=== PATIENT | female | born 1940 | race Caucasian/White ===

== ENCOUNTER 2018-11-22 20:39 | Inpatient (IN) | payer MEDICARE, BC ==
[2018-11-22] MEDS ORDERED: ONDANSETRON 4 MG TAB.RAPDIS PO ONE (22:34)
[2018-11-22] MEDS ORDERED: DICYCLOMINE HCL 20 MG TABLET PO ONE (22:34)
[2018-11-22] MEDS ORDERED: NORMAL SALINE 1000 ML 1,000 ML IV ONE (22:35)
--- NOTE | 2018-11-22 22:37 | ER Document Report ---
ED Medical Screen (RME) - General Chief Complaint: Abdominal Cramping Stated Complaint: ABDOMINAL PAIN Time Seen by Provider: 11/22/18 22:26 Notes: Patient is a 78-year-old female who presents the emergency department with a chief complaint of abdominal pain. Her pain is mid abdomen. Patient has had pain for the past week. She states that it is a cramping pain. She states that 5 days ago she felt constipated and took some medication to have her have a bowel movement and she has not had a bowel movement since then. She also states that she has not been eating or drinking and has had a poor appetite. The pain is in her mid abdomen and wraps around her right back. Exam: Soft mildly tender abdomen. I have greeted and performed a rapid initial assessment of this patient. A comprehensive ED assessment and evaluation of the patient, analysis of test results and completion of medical decision making process will be conducted by an additional ED providers. - Related Data Allergies/Adverse Reactions: codeine Allergy (Verified 11/22/18 22:32) shellfish derived Allergy (Verified 11/22/18 22:32) Past Medical History - Social History Frequency of alcohol use: Rare Drug Abuse: None Physical Exam - Vital signs Vitals: Temp Pulse Resp BP Pulse Ox 98.0 F 92 16 146/63 H 97 11/22/18 20:56 11/22/18 20:56 11/22/18 20:56 11/22/18 20:56 11/22/18 20:56 Course - Vital Signs Vital signs: Temp Pulse Resp BP Pulse Ox 98.0 F 92 16 146/63 H 97 11/22/18 20:56 11/22/18 20:56 11/22/18 20:56 11/22/18 20:56 11/22/18 20:56
[2018-11-22 23:50] LABS: APPEARANCE,URINE CLEAR; BILIRUBIN,URINE MODERATE (NEGATIVE); GLUCOSE, URINE NEGATIVE (NEGATIVE); KETONES,URINE TRACE mg/dL (NEGATIVE); LEUKOCYTE ESTERASE,URINE NEGATIVE (NEGATIVE); NITRITE,URINE NEGATIVE (NEGATIVE); PROTEIN,URINE 30 mg/dL (NEGATIVE); URINE SPECIFIC GRAVITY 1.017
[2018-11-22 23:51] LABS: COLOR,URINE DARK YELLOW
--- NOTE | 2018-11-22 23:51 | ER Document Report ---
ED General - General Chief Complaint: Abdominal Cramping Stated Complaint: ABDOMINAL PAIN Time Seen by Provider: 11/22/18 22:26 - HPI Notes: Patient presents with 2 weeks of intermittent mid abdominal pain that wraps around to the right side of her back. She had a bowel movement after taking laxatives this past Sunday is not had a bowel movement since then. She denies any chest pain shortness of breath fevers or chills. Denies any dysuria. Is any black-red stool from her last bowel movement. She has been having nausea a nd vomiting up most of what she eats over the past 5 days. - Related Data Allergies/Adverse Reactions: codeine Allergy (Verified 11/22/18 22:32) shellfish derived Allergy (Verified 11/22/18 22:32) Past Medical History - Social History Smoking Status: Former Smoker Frequency of alcohol use: Rare Drug Abuse: None Family History: Reviewed & Not Pertinent Patient has suicidal ideation: No Patient has homicidal ideation: No Review of Systems - Review of Systems Constitutional: No symptoms reported EENT: No symptoms reported Cardiovascular: No symptoms reported Respiratory: No symptoms reported Gastrointestinal: See HPI Genitourinary: No symptoms reported Female Genitourinary: No symptoms reported Musculoskeletal: No symptoms reported Skin: No symptoms reported Hematologic/Lymphatic: No symptoms reported Neurological/Psychological: No symptoms reported Physical Exam - Vital signs Vitals: Temp Pulse Resp BP Pulse Ox 98.0 F 92 16 146/63 H 97 11/22/18 20:56 11/22/18 20:56 11/22/18 20:56 11/22/18 20:56 11/22/18 20:56 - General General appearance: Appears well, Alert - HEENT Head: Normocephalic, Atraumatic Eyes: Normal Pupils: PERRL - Respiratory Respiratory status: No respiratory distress Chest status: Nontender Breath sounds: Normal Chest palpation: Normal - Abdominal Inspection: Other - Obese abdomen with palpation very hard mass palpated in mid abdominal area concerning for neoplasm Bowel sounds: Normal Tenderness: Nontender - Back Back: Normal, Nontender - Extremities General upper extremity: Normal ROM General lower extremity: Normal ROM - Neurological Neuro grossly intact: Yes Cognition: Normal Orientation: AAOx4 Course - Re-evaluation Re-evalutation: 11/22/18 23:51 Very pleasant patient concerning for neoplasm in abdomen on exam. Pending CT abdomen at this time 11/23/18 02:06 She has 2 large masses in her peritoneal abdominal cavity. Discussed this with Dr. Powers who will come see the patient. - Vital Signs Vital signs: Temp Pulse Resp BP Pulse Ox 98.4 F 63 15 146/51 H 93 11/23/18 12:29 11/23/18 12:29 11/23/18 12:29 11/23/18 12:29 11/23/18 12:29 - Laboratory Result Diagrams: 11/22/18 23:19 11/22/18 23:19 Laboratory results interpreted by me: 11/22/18 11/22/18 11/22/18 23:19 23:19 23:19 RDW 16.4 H Glucose 113 H Total Bilirubin 3.7 H Direct Bilirubin 3.0 H AST 279 H Alkaline Phosphatase 302 H Lipase 303.2 H Urine Protein 30 H Urine Ketones TRACE H Urine Bilirubin MODERATE H Urine Urobilinogen 4.0 H Discharge - Discharge Clinical Impression: Pelvic mass in female Condition: Good Disposition: ADMITTED INPATIENT Admitting Provider: Priya Unit Admitted: Surgical Floor
[2018-11-22 23:54] LABS: ABSOLUTE BASOPHILS # (AUTO) 0.1 10^3/uL (0.0-0.2); ABSOLUTE EOSINOPHILS # (AUTO) 0.1 10^3/uL (0.0-0.6); ABSOLUTE MONOCYTES (AUTO) 0.6 10^3/uL (0.1-1.4); ABSOLUTE NEUT (AUTO) 4.1 10^3/uL (1.7-8.2); HEMATOCRIT 38.2 % (36.0-47.0); HEMOGLOBIN 12.8 g/dL (12.0-15.5); LYMPHOCYTES % (AUTO) 28.4 % (13-45); MEAN CORPUSCULAR HEMOGLOBIN 29.5 pg (27.0-33.4); MEAN CORPUSCULAR HGB CONC 33.4 g/dL (32.0-36.0); MEAN CORPUSCULAR VOLUME 88 fl (80-97); MONOCYTES % (AUTO) 9.2 % (3-13); PLATELET COUNT 322 10^3/uL (150-450); RED BLOOD COUNT 4.33 10^6/uL (3.72-5.28); RED CELL DISTRIBUTION WIDTH 16.4 % (11.5-14.0); SEGMENTED NEUTROPHILS % (AUTO) 59.4 % (42-78); TOTAL CELLS COUNTED % (AUTO) 100 %; WHITE BLOOD COUNT 6.9 10^3/uL (4.0-10.5)
[2018-11-23 00:02] LABS: ALBUMIN 4.5 g/dL (3.5-5.0); ALKALINE PHOSPHATASE 302 U/L (38-126); ANION GAP 11 (5-19); ASPARTATE AMINO TRANSFERASE 279 U/L (14-36); BILIRUBIN,TOTAL 3.7 mg/dL (0.2-1.3); BLOOD UREA NITROGEN 10 mg/dL (7-20); CALCIUM 10.1 mg/dL (8.4-10.2); CARBON DIOXIDE 26 mmol/L (22-30); CHLORIDE 100 mmol/L (98-107); GLUCOSE 113 mg/dL (75-110); POTASSIUM 3.9 mmol/L (3.6-5.0); TOTAL PROTEIN 7.9 g/dL (6.3-8.2)
[2018-11-23] MEDS ORDERED: RINGERS SOLUTION,LACTATED 1,000 ML IV ONE (00:12)
--- NOTE | 2018-11-23 01:11 | RADIOLOGY REPORT (SQ) ---
EXAM DESCRIPTION: [facility]: CT ABDOMEN PELVIS WITH IV CONTRAST CLINICAL HISTORY: 78 years Female; abd pain TECHNIQUE: CT of the abdomen and pelvis using intravenous contrast. All CT scans at this facility use dose modulation, iterative reconstruction, and/or weight based dosing when appropriate to reduce radiation dose to as low as reasonably achievable. COMPARISON: None. FINDINGS: Abdomen: There are 2 large loculated cystic masses: In the left lateral abdomen, lesion measures 22 cm AP by 21.5 cm LR by 20 cm SI. This causes displacement of the bowel to the right. The lesion extends to the right of midline. Distal abdominal aorta is also displaced to the right. The left kidney is displaced superiorly. There is no surrounding edema. No significant enhancement of the septations. In the pelvis to the right of midline, the other lesion measures 18 cm AP by 14 cm SI by 14 cm LR. The posterior margin of the lesion abuts the right psoas muscle and iliac vessels. Left posterior margin abuts the sigmoid colon. The sigmoid colon is interposed between the 2 masses. Right ureter abuts the right posterior margin of the lesion, with minimal right hydronephrosis. Bladder is at the left anterior margin of the pelvic lesion, distorted by the mass. There are scattered small retroperitoneal lymph nodes, none greater than 8 mm. Liver:No focal lesions. No intrahepatic ductal distention. Gallbladder: Filled with sludge and stones. Pancreas:Within normal limits Spleen:Within normal limits Right kidney:No hydronephrosis. No focal lesion. Left kidney:No hydronephrosis. No focal lesion. Adrenal glands:Within normal limits Vascular structures:Within normal limits Pelvis: Small bowel:No significant distention. Appendix: Not reliably identified. No regional edema. Colon:No distention or acute pericolonic edema. No free intraperitoneal fluid or air. Bones: Chronic degenerative changes in the lumbar spine. No suspicious lytic or blastic bone lesions. IMPRESSION: 1. 2 large multiloculated cystic masses occupy the majority of the peritoneal cavity. Differential diagnosis includes ovarian cystadenomas versus cystadenocarcinoma or possibly sarcoma. These cause significant mass effect on multiple structures, as described. 2. No evidence for metastatic disease. 3. Mild right hydronephrosis. 4. Cholelithiasis, with calculi and hyperdense material filling the gallbladder. No adjacent acute edema.
[2018-11-23] MEDS ORDERED: ONDANSETRON HCL INJ/PF 4 MG/2 ML SDV IV PRN (03:09)
[2018-11-23] MEDS ORDERED: DEXTROSE 5%-LACTATED RINGERS 1,000 ML IV PRN (03:09)
--- NOTE | 2018-11-23 03:09 | PDOC H&P ---
History of Present Illness Admission Date/PCP: 11/23/2018 Patient complains of: vomiting and abdominal pains History of Present Illness: CHIKIS MOLINA is a 78 year old female who apparently has been helping most of her life and has not seen a doctor until today when she went to the ED. He has been complaining of constipation in the past at times are going to the bathroom for about 2 weeks. In the past week she started to have more abdominal pains with nausea and vomiting 5 days ago. She was the last time she she was able to eat food was 7 days ago and also there is about the last time she had a bowel movement. She claims she lost about 10 pounds in the past week and may be a total of 20 pounds since 4 to 5 months ago. Last night she complained of more severe upper abdominal pains lasting 4 to 5 hours and then followed by nausea and vomiting. She is not able to drink any water without throwing up. She denies any fever nor chills. She avoids eating greazy food. Past Medical History Medical History: None Past Surgical History Past Surgical History: Reports: None Social History Smoking Status: Former Smoker Frequency of Alcohol Use: Rare - wine Hx Recreational Drug Use: No Family History Parental Family History Reviewed: Yes - Father and sister had diabetes mellitus Children Family History Reviewed: No Sibling(s) Family History Reviewed.: No Medication/Allergy Allergies/Adverse Reactions: codeine Allergy (Verified 11/22/18 22:32) shellfish derived Allergy (Verified 11/22/18 22:32) Review of Systems Constitutional: PRESENT: as per HPI Ears: PRESENT: other - Slightly decreased hearing Cardiovascular: PRESENT: other - No cough no chest pains Gastrointestinal: PRESENT: abdominal pain, constipation, nausea, vomiting Physical Exam Vital Signs: Temp Pulse Resp BP Pulse Ox 98.0 F 73 16 189/75 H 98 11/23/18 02:28 11/23/18 02:28 11/23/18 02:28 11/23/18 02:28 11/23/18 02:28 Intake & Output 11/21/18 11/22/18 11/23/18 06:59 06:59 06:59 Intake Total 1000 Balance 1000 Weight 87.4 kg General appearance: PRESENT: mild distress Head exam: PRESENT: atraumatic Eye exam: PRESENT: conjunctiva pink Mouth exam: PRESENT: dry mucosa Neck exam: PRESENT: full ROM Respiratory exam: PRESENT: clear to auscultation feroz Cardiovascular exam: PRESENT: RRR Pulses: PRESENT: normal radial pulses Vascular exam: PRESENT: normal capillary refill GI/Abdominal exam: PRESENT: soft, tenderness - There is a firm mildly tender area primarily along the left upper quadrant. Rectal exam: PRESENT: deferred Extremities exam: PRESENT: full ROM Musculoskeletal exam: PRESENT: ambulatory Neurological exam: PRESENT: alert, oriented to person, oriented to place, oriented to time, oriented to situation Psychiatric exam: PRESENT: appropriate affect Skin exam: PRESENT: normal color, warm Results Laboratory Results: 11/22/18 23:19 11/22/18 23:19 11/22/18 11/22/18 11/22/18 23: 23: 23: WBC 6.9 RBC 4.33 Hgb 12.8 Hct 38.2 MCV 88 MCH 29.5 MCHC 33.4 RDW 16.4 H Plt Count 322 Seg Neutrophils % 59.4 Sodium 137.1 Potassium 3.9 Chloride 100 Carbon Dioxide 26 Anion Gap 11 BUN 10 Creatinine 0.76 Est GFR ( Amer) > 60 Glucose 113 H Calcium 10.1 Total Bilirubin 3.7 H AST 279 H Alkaline Phosphatase 302 H Total Protein 7.9 Albumin 4.5 Lipase 303.2 H Urine Color DARK YELLOW Urine Appearance CLEAR Urine pH 5.0 Ur Specific [place] 1.017 Urine Protein 30 H Urine Glucose (UA) NEGATIVE Urine Ketones TRACE H Urine Blood NEGATIVE Urine Nitrite NEGATIVE Ur Leukocyte Esterase NEGATIVE Urine WBC (Auto) 7 Urine RBC (Auto) 1 Impressions: Abdomen/Pelvis CT 11/22/18 22:37 IMPRESSION: 1. 2 large multiloculated cystic masses occupy the majority of the peritoneal cavity. Differential diagnosis includes ovarian cystadenomas versus cystadenocarcinoma or possibly sarcoma. These cause significant mass effect on multiple structures, as described. 2. No evidence for metastatic disease. 3. Mild right hydronephrosis. 4. Cholelithiasis, with calculi and hyperdense material filling the gallbladder. No adjacent acute edema. Assessment & Plan - Diagnosis (1) intra-abdominal large cystic masses x2 Is this a current diagnosis for this admission?: Yes (2) Nausea & vomiting Is this a current diagnosis for this admission?: Yes (3) constipation Is this a current diagnosis for this admission?: Yes (4) Weight loss Is this a current diagnosis for this admission?: Yes (5) Elevated LFTs Is this a current diagnosis for this admission?: Yes - Time Time Spent: 30 to 50 Minutes - Inpatient Certification Medical Necessity: Need For IV Fluids, Need for Surgery - Plan Summary Plan Summary: 78-year-old female with severe constipation and nausea and vomiting for the past week and inability to eat or drink in the past few days. She has associated weight loss and intermittent abdominal pains primarily in the upper abdomen radiating to the back. CT scan of the abdomen showed 2 large multiloculated cystic lesion compressing the large and small bowel. She has lost 10 pounds in the past week and a total of 20 pounds in the past 4 months. She has fullness of the abdomen with the firm mildly tender mass in the area of the left upper quadrant. CT scan of the abdomen revealed the 2 large multiloculated cystic lesions partially compressing the large and small bowel and cholelithiasis Impression: 2 large multi loculated lesions possibly cyst adenocarcinoma of the ovary versus sarcoma, cholelithiasis with elevated LFTs Plan: 1 get an ultrasound of the gallbladder 2 MRCP 3 [employer] consult for cystic lesions possibly from ovarian source 4 if indeed there is common bile duct obstruction from a stone then patient may need to be transferred to tertiary hospital where they have a cad programmer on-call who can do ERCP #5 repeat blood work
--- NOTE | 2018-11-23 04:49 | RADIOLOGY REPORT (SQ) ---
EXAM DESCRIPTION: US ABDOMEN COMPLETED DATE/TME: 11/23/2018 00:00 CLINICAL HISTORY: 78 years Female, elevated LFTs with cholelithiasis on CT scan Comparison: None. LIMITATIONS: None. FINDINGS: Known complex cystic mass of the abdominal pelvic cavity partially imaged. Please see abnormal CT report. Cholelithiasis, negative sonographic Orellana's test, liver, a 0.4-cm diameter common bile duct, no intrahepatic ductal dilation, hepatopetal patent flow of the portal vein, spleen, 10-cm left kidney, 10 -cm right kidney, obscured pancreas, visualized vasculature/abdominal aorta, and no significant ascites appear otherwise unremarkable. IMPRESSION: 1. Cholelithiasis. 2. Obscured pancreas. 3. Known complex cystic mass of the abdominal pelvic cavity partially imaged. See abnormal concurrent CT report.
[2018-11-23] MEDS ORDERED: CEFAZOLIN INJ 1 GM VIAL ONE (05:58)
[2018-11-23] MEDS: CEFAZOLIN 1 GM/D5W RTU 1 GM/50 ML RTUPB IV SCH ×2 (06:27→13:37)
--- NOTE | 2018-11-23 09:34 | PDOC TRANSFER SUMMARY ---
General Admission Date/PCP: 11/23/18 03:30 - Transfer Diagnosis (1) Elevated LFTs Is this a current diagnosis for this admission?: Yes (2) Nausea & vomiting Is this a current diagnosis for this admission?: Yes (3) Pelvic mass in female Is this a current diagnosis for this admission?: Yes - Transfer Medications Transfer Medications: Current Medications Dextrose/Lactated Ringer's (D5lr 1000 Ml Iv Soln) 1,000 mls @ 100 mls/hr IV CO NTINUOUS PRN PRN Reason: THIS MED IS NOT "PRN" Stop: 12/23/18 03:08 Last Admin: 11/23/18 06:27 Dose: 100 mls/hr Documented by: Cefazolin Sodium/Dextrose (Ancef Rtu 1 Gm/D5w 50 Ml Premix Bag) 1 gm in 50 mls @ 100 mls/hr IV Q6 MARLY Stop: 11/30/18 05:59 Last Admin: 11/23/18 06:27 Dose: Not Given Documented by: Ondansetron HCl (Zofran Inj/Pf 4 Mg/2 Ml Sdv) 4 mg IV Q8HP PRN PRN Reason: FOR NAUSEA/VOMITING Stop: 12/23/18 03:08 - Allergies Allergies/Adverse Reactions: codeine Allergy (Verified 11/22/18 22:32) shellfish derived Allergy (Verified 11/22/18 22:32) Hospital Course Hospital Course: CHIKIS MOLNIA is a 78 year old female who apparently has been helping most of her life and has not seen a doctor until today when she went to the ED. He has been complaining of constipation in the past at times are going to the bathroom for about 2 weeks. In the past week she started to have more abdominal pains with nausea and vomiting 5 days ago. She was the last time she she was able to eat food was 7 days ago and also there is about the last time she had a bowel movement. She claims she lost about 10 pounds in the past week and may be a total of 20 pounds since 4 to 5 months ago. Last night she complained of more severe upper abdominal pains lasting 4 to 5 hours and then followed by nausea and vomiting. She is not able to drink any water without throwing up. She denies any fever nor chills. pt had a ct scan done here at [facility], showing large pelvic mass possibly ovarian obgyn hospitalist physician consulted and arrangenment made for tx to obgyn hospitalist physician oncology. pt also with elevated lft's and tbili, felt secondary to compression of kristal hepatis due to masss pt also has cholelithiasis, no evidence of cholecysttiis. Physical Exam Vital Signs: Temp Pulse Resp BP Pulse Ox 97.9 F 56 L 15 122/55 L 96 11/23/18 07:49 11/23/18 07:49 11/23/18 07:49 11/23/18 07:49 11/23/18 07:49 Intake & Output 11/22/18 11/23/18 11/24/18 06:59 06:59 06:59 Intake Total 1999 Balance 1999 Weight 88.5 kg General appearance: PRESENT: no acute distress Head exam: PRESENT: normocephalic Eye exam: PRESENT: EOMI Ear exam: PRESENT: normal external ear exam Mouth exam: PRESENT: moist Neck exam: PRESENT: full ROM Respiratory exam: PRESENT: clear to auscultation feroz Cardiovascular exam: PRESENT: RRR Pulses: PRESENT: +2 pedal pulses bilateral GI/Abdominal exam: PRESENT: other - softly distened with palp mass, extending from pubic symphsis to left subcostal Rectal exam: PRESENT: deferred Extremities exam: PRESENT: full ROM Musculoskeletal exam: PRESENT: full ROM Neurological exam: PRESENT: alert, awake, oriented to person, oriented to place Psychiatric exam: PRESENT: appropriate affect Skin exam: PRESENT: dry Results Laboratory Results: 11/22/18 23:19 11/22/18 23:19 11/22/18 11/22/18 11/22/18 23:19 23:19 23:19 WBC 6.9 RBC 4.33 Hgb 12.8 Hct 38.2 MCV 88 MCH 29.5 MCHC 33.4 RDW 16.4 H Plt Count 322 Seg Neutrophils % 59.4 Sodium 137.1 Potassium 3.9 Chloride 100 Carbon Dioxide 26 Anion Gap 11 BUN 10 Creatinine 0.76 Est GFR ( Amer) > 60 Glucose 113 H Calcium 10.1 Total Bilirubin 3.7 H AST 279 H Alkaline Phosphatase 302 H Total Protein 7.9 Albumin 4.5 Lipase 303.2 H Urine Color DARK YELLOW Urine Appearance CLEAR Urine pH 5.0 Ur Specific [place] 1.017 Urine Protein 30 H Urine Glucose (UA) NEGATIVE Urine Ketones TRACE H Urine Blood NEGATIVE Urine Nitrite NEGATIVE Ur Leukocyte Esterase NEGATIVE Urine WBC (Auto) 7 Urine RBC (Auto) 1 Impressions: Abdomen/Pelvis CT 11/22/18 22:37 IMPRESSION: 1. 2 large multiloculated cystic masses occupy the majority of the peritoneal cavity. Differential diagnosis includes ovarian cystadenomas versus cystadenocarcinoma or possibly sarcoma. These cause significant mass effect on multiple structures, as described. 2. No evidence for metastatic disease. 3. Mild right hydronephrosis. 4. Cholelithiasis, with calculi and hyperdense material filling the gallbladder. No adjacent acute edema. Abdomen Ultrasound 11/23/18 00:00 IMPRESSION: 1. Cholelithiasis. 2. Obscured pancreas. 3. Known complex cystic mass of the abdominal pelvic cavity partially imaged. See abnormal concurrent CT report. Plan Time Spent: Less than 30 Minutes - obgyn hospitalist physician oncology at [facility] notified and Dr pascual has accepted pt.
--- NOTE | 2018-11-23 11:38 | PDOC CONSULTATION ---
Consultation Consult Date: 11/23/18 Attending physician:: MARIA E SUTTON Provider Consulted: LAVINIA SINCLAIR Consult reason:: Bilateral ovarian masses concerning for primary ovarian cancer History of Present Illness Admission Date/PCP: 11/23/18 03:30 Patient complains of: Increasing abdominal girth, constipation, abdominal pain History of Present Illness: CHIKIS MOLINA is a 78 year old female with about a 1 to 2-year history of increasing abdominal girth, over the last 6 months it has increased considerably, she had lifelong issues with constipation but over the last 6 months it has been very severe, ultimately she had severe abdominal pain that resulted in her coming to the ED yesterday, upon presenting she had CT of the abdomen pelvis which indicated in the left lateral abdomen lesion measuring 22 x 21 x 20 cm, causing displacement of the bowel to the right, extends to the right of the midline, left kidney displaced superiorly, and the pelvis to the right of the midline another lesion 18 x 14 x 14 cm, posterior margin of the lesion abuts the right psoas and iliac vessels, left posterior margin abuts the sigmoid colon, right ureter abuts the positive margin of the lesion with mild right hydronephrosis, bladder at the anterior margin of the pelvic lesion distorted by the mass, scattered small retroperitoneal nodes less than 8 mm. I discussed her case with Dr. Zara Garcia of the [facility], in [place], who has accepted transfer to her care. Past Medical History Medical History: None Past Surgical History Past Surgical History: Reports: Hysterectomy Social History Information Source: Patient Smoking Status: Former Smoker Cigarettes Packs Per Day: 1 Number of Years Smokin Frequency of Alcohol Use: None Hx Recreational Drug Use: No Drugs: None - Advance Directive Resuscitation Status: Full Code Family History Parental Family History Reviewed: Yes Children Family History Reviewed: Yes Sibling(s) Family History Reviewed.: Yes Medication/Allergy Allergies/Adverse Reactions: codeine Allergy (Verified 11/22/18 22:32) shellfish derived Allergy (Verified 11/22/18 22:32) Review of Systems Constitutional: ABSENT: chills, fever(s), headache(s), weight gain, weight loss Eyes: ABSENT: visual disturbances Ears: ABSENT: hearing changes Cardiovascular: ABSENT: chest pain, dyspnea on exertion, edema, orthropnea, palpitations Respiratory: ABSENT: cough, hemoptysis Gastrointestinal: ABSENT: abdominal pain, constipation, diarrhea, hematemesis, hematochezia, nausea, vomiting Genitourinary: ABSENT: dysuria, hematuria Musculoskeletal: ABSENT: joint swelling Integumentary: ABSENT: rash, wounds Neurological: ABSENT: abnormal gait, abnormal speech, confusion, dizziness, focal weakness, syncope Psychiatric: ABSENT: anxiety, depression, homidical ideation, suicidal ideation Endocrine: ABSENT: cold intolerance, heat intolerance, polydipsia, polyuria Hematologic/Lymphatic: ABSENT: easy bleeding, easy bruising Physical Exam Vital Signs: Temp Pulse Resp BP Pulse Ox 97.9 F 56 L 15 122/55 L 96 11/23/18 07:49 11/23/18 07:49 11/23/18 07:49 11/23/18 07:49 11/23/18 07:49 Intake & Output 11/22/18 11/23/18 11/24/18 06:59 06:59 06:59 Intake Total 1999 Balance 1999 Weight 88.5 kg General appearance: PRESENT: no acute distress, well-developed, well-nourished Head exam: PRESENT: atraumatic, normocephalic Eye exam: PRESENT: conjunctiva pink, EOMI, PERRLA. ABSENT: scleral icterus Ear exam: PRESENT: normal external ear exam Mouth exam: PRESENT: moist, tongue midline Neck exam: ABSENT: carotid bruit, JVD, lymphadenopathy, thyromegaly Respiratory exam: PRESENT: clear to auscultation feroz. ABSENT: rales, rhonchi, wheezes Cardiovascular exam: PRESENT: RRR. ABSENT: diastolic murmur, rubs, systolic murmur Pulses: PRESENT: normal dorsalis pedis pul Vascular exam: PRESENT: normal capillary refill GI/Abdominal exam: PRESENT: normal bowel sounds, soft. ABSENT: distended, guarding, mass, organolmegaly, rebound, tenderness Rectal exam: PRESENT: deferred Extremities exam: PRESENT: full ROM. ABSENT: calf tenderness, clubbing, pedal edema Neurological exam: PRESENT: alert, awake, oriented to person, oriented to place, oriented to time, oriented to situation, CN II-XII grossly intact. ABSENT: motor sensory deficit Psychiatric exam: PRESENT: appropriate affect, normal mood. ABSENT: homicidal ideation, suicidal ideation Skin exam: PRESENT: dry, intact, warm. ABSENT: cyanosis, rash Results Laboratory Results: 11/22/18 23:19 11/22/18 23:19 11/22/18 11/22/18 11/22/18 23:19 23:19 23:19 WBC 6.9 RBC 4.33 Hgb 12.8 Hct 38.2 MCV 88 MCH 29.5 MCHC 33.4 RDW 16.4 H Plt Count 322 Seg Neutrophils % 59.4 Sodium 137.1 Potassium 3.9 Chloride 100 Carbon Dioxide 26 Anion Gap 11 BUN 10 Creatinine 0.76 Est GFR ( Amer) > 60 Glucose 113 H Calcium 10.1 Total Bilirubin 3.7 H AST 279 H Alkaline Phosphatase 302 H Total Protein 7.9 Albumin 4.5 Lipase 303.2 H Urine Color DARK YELLOW Urine Appearance CLEAR Urine pH 5.0 Ur Specific [place] 1.017 Urine Protein 30 H Urine Glucose (UA) NEGATIVE Urine Ketones TRACE H Urine Blood NEGATIVE Urine Nitrite NEGATIVE Ur Leukocyte Esterase NEGATIVE Urine WBC (Auto) 7 Urine RBC (Auto) 1 Impressions: Abdomen/Pelvis CT 11/22/18 22:37 IMPRESSION: 1. 2 large multiloculated cystic masses occupy the majority of the peritoneal cavity. Differential diagnosis includes ovarian cystadenomas versus cystadenocarcinoma or possibly sarcoma. These cause significant mass effect on multiple structures, as described. 2. No evidence for metastatic disease. 3. Mild right hydronephrosis. 4. Cholelithiasis, with calculi and hyperdense material filling the gallbladder. No adjacent acute edema. Abdomen Ultrasound 11/23/18 00:00 IMPRESSION: 1. Cholelithiasis. 2. Obscured pancreas. 3. Known complex cystic mass of the abdominal pelvic cavity partially imaged. See abnormal concurrent CT report. Status: Image reviewed by me Assessment & Plan - Diagnosis (1) Mass, ovarian Is this a current diagnosis for this admission?: Yes Plan: Picture concerning for a primary ovarian cancer, patient will need [facility] oncology evaluation as well as a BSO and staging surgery, she is already had a hysterectomy. We discussed that if this ends up being a serious ovarian cancer, she may require adjuvant chemotherapy after surgery. If the diagnosis of is obtainable preoperatively, we may be able to offer neoadjuvant chemotherapy. But I suspect that [facility] oncology will probably take her for a primary operation. I went over the surgery with the patient as well as what to expect, patient is understanding and agreeable with next steps of care. - Time Time Spent: Greater than 70 Minutes - Inpatient Certification Based on my medical assessment, after consideration of the patient's comorbidities, presenting symptoms, or acuity I expect that the services needed warrant INPATIENT care.: Yes I certify that my determination is in accordance with my understanding of Medicare's requirements for reasonable and necessary INPATIENT services [42 CFR 412.3e].: Yes Medical Necessity: Need for Surgery, Risk of Complication if Not Cared For in Hospital
[2018-11-23 13:03] VITALS: BP 146/51
[2018-11-23] MEDS ORDERED: CEFAZOLIN SODIUM 1 GM in DEXTROSE 5%-WATER 50 ML IV SCH (22:00)
== END 2018-11-23 17:20 | disposition short-term general hospital (02) | DRG 392 ==
LOC: ER 20:39 → EH 11-23 03:30 → 4S 11-23 04:22
PROVIDERS: ADMIT Surgery; ATTEND Surgery
DX: R19.09 Other intra-abdominal and pelvic swelling, mass and lump (principal); K80.20 Calculus of gallbladder without cholecystitis without obstruction; K59.00 Constipation, unspecified; R94.5 Abnormal results of liver function studies; R63.4 Abnormal weight loss
CPT/HCPCS: 36415; 74177; 76700; 80053; 81001; 82105; 83690; 84702; 85025; 86304; 96360; 96361; 99285; J0690; J3490; J7030; J7120; J7121; S0119

== ENCOUNTER 2018-12-05 20:27 | Inpatient (IN) | payer MEDICARE, BC ==
[2018-12-05] MEDS ORDERED: ONDANSETRON HCL INJ/PF 4 MG/2 ML SDV IV ONE (21:37)
--- NOTE | 2018-12-05 21:41 | ER Document Report ---
ED Medical Screen (RME) - General Chief Complaint: Vomiting/Diarrhea Stated Complaint: VOMITING,DIARRHEA Time Seen by Provider: 12/05/18 21:30 Mode of Arrival: Wheelchair Information source: Patient Notes: 78-year-old female presents emergency department with reports of vomiting and diarrhea since she had surgery 2 weeks ago. Patient reports she is extremely weak. Patient had surgery at [facility] for a mass that was benign. Daughters reports renal stent placed. Daughters report diarrhea is foul- smelling. Patient did have antibiotics at [facility]. Daughters report patient is having projectile vomiting. Patient is extremely pale. Dictation of this chart was performed using voice recognition software; therefore, there may be some unintended grammatical errors. i have greeted and performed a rapid initial assessment of this patient. A comprehensive ED assessment and evaluation of the patient, analysis of test results and completion of the medical decision making process will be conducted by additional ED providers. TRAVEL OUTSIDE OF THE [place] IN LAST 30 DAYS: No - Related Data Allergies/Adverse Reactions: codeine Allergy (Verified 11/22/18 22:32) shellfish derived Allergy (Verified 11/22/18 22:32) Past Medical History Past Surgical History: Reports: Hx Hysterectomy Physical Exam - Vital signs Vitals: Temp Pulse Resp BP Pulse Ox 97.5 F 93 18 132/46 H 97 12/05/18 21:00 12/05/18 21:00 12/05/18 21:00 12/05/18 21:00 12/05/18 21:00 Course - Vital Signs Vital signs: Temp Pulse Resp BP Pulse Ox 97.5 F 93 18 132/46 H 97 12/05/18 21:00 12/05/18 21:00 12/05/18 21:00 12/05/18 21:00 12/05/18 21:00
[2018-12-05] MEDS ORDERED: NORMAL SALINE 500 ML IV ONE (22:24)
--- NOTE | 2018-12-05 22:31 | ER Document Report ---
ED GI/ - General Chief Complaint: Nausea/Vomiting/Diarrhea Stated Complaint: VOMITING,DIARRHEA Time Seen by Provider: 12/05/18 21:30 Mode of Arrival: Wheelchair Notes: Patient is a 78-year-old female that comes emergency department for chief complaint of vomiting and diarrhea, she states she has had vomiting every day since she had a pelvic mass removed by [facility] Dr. Zara Houston at [facility]. Reportedly patient had enormous cysts in the pelvis which were ovarian and source and she had bilateral oophorectomy but she was told that the cysts/masses were benign. Patient states that she was on stool softeners for 4 days before being discharged after she had a bowel movement finally, she states she has had multiple episodes of watery diarrhea since then for the past week and she has vomited every day. Patient reportedly had a ureteral stent placed as well. She has vomited 5 times today. She had her Judd catheter removed by the urology office today. Daughter is at bedside states they have been trying to give her Pedialyte to keep up but she continues to vomit. She complains of bad heartburn with eating as well. She has not passed out, she is not running a fever, there is no blood in the vomit or diarrhea reportedly. Patient had never had a primary care provider in the past, she had had a partial hysterectomy, she has known gallstones, former smoker, no medical history is known otherwise, no daily medications. She was given antibiotics in the hospital but she is not on one at home, she has never had C. difficile in the past. TRAVEL OUTSIDE OF THE [place] IN LAST 30 DAYS: No - Related Data Allergies/Adverse Reactions: codeine Allergy (Verified 11/22/18 22:32) shellfish derived Allergy (Verified 11/22/18 22:32) Past Medical History - General Information source: Patient - Social History Smoking Status: Never Smoker Chew tobacco use (# tins/day): No Drug Abuse: None Family History: Reviewed & Not Pertinent Patient has suicidal ideation: No Patient has homicidal ideation: No Past Surgical History: Reports: Hx Hysterectomy - Immunizations Hx Pneumococcal Vaccination: 11/26/17 Review of Systems - Review of Systems Constitutional: No symptoms reported EENT: No symptoms reported Cardiovascular: No symptoms reported Respiratory: No symptoms reported Gastrointestinal: See HPI Genitourinary: No symptoms reported Female Genitourinary: No symptoms reported Musculoskeletal: No symptoms reported Skin: No symptoms reported Hematologic/Lymphatic: No symptoms reported Neurological/Psychological: No symptoms reported Physical Exam - Vital signs Vitals: Temp Pulse Resp BP Pulse Ox 97.5 F 93 18 132/46 H 97 12/05/18 21:00 12/05/18 21:00 12/05/18 21:00 12/05/18 21:00 12/05/18 21:00 - Notes Notes: GENERAL: Alert, interacts well. No acute distress. HEAD: Normocephalic, atraumatic. EYES: Pupils equal, round, and reactive to light. Extraocular movements intact. ENT: Oral mucosa moist, tongue midline. Oropharynx unremarkable. Airway patent. Nares patent, no nasal septal hematoma, TM's intact. NECK: Full range of motion. Supple. Trachea midline. LUNGS: Clear to auscultation bilaterally, no wheezes, rales, or rhonchi. No respiratory distress. HEART: Regular rate and rhythm. Holosystolic murmur. ABDOMEN: Midline abdominal shay extending from the upper abdomen to the lower abdomen in a vertical line and around the umbilicus. No dehiscence, bleeding, erythema, tenderness, or other concerning a normality. Minimal generalized abdominal tenderness, bowel sounds present throughout. GENITOURINARY: Deferred EXTREMITIES: Moves all 4 extremities spontaneously. No edema, normal radial and dorsalis pedis pulses bilaterally. No cyanosis. BACK: no cervical, thoracic, lumbar midline tenderness. No saddle anesthesia, normal distal neurovascular exam. Moves all extremities in full range of motion. NEUROLOGICAL: Alert and oriented x3. Normal speech. Cranial nerves II through XII grossly intact. PSYCH: Normal affect, normal mood. SKIN: Very pale Course - Re-evaluation Re-evalutation: Patient is pale and has dry mucous membranes. She has mild generalized abdominal tenderness but no guarding, wound from the surgery does not appear to be infected. Unremarkable vital signs. CBC shows leukocytosis of 15,000 with elevation of neutrophils and some anemia. Chemistry shows renal insufficiency. Lipase elevated at greater than 1200. Patient has been given IV fluids and Zofran, she declined pain medication. CAT scan was performed because patient is postop and vomiting with elevated lipase. CAT scan showing ileus, but no acute findings. Because patient is having diffi culty tolerating p.o., still vomiting, has pancreatitis, and has ileus, she will require hospitalization. Patient is asking me to admit her here and requesting that she not be transferred back to [place]. Family is very supportive of this and does not want to go back to [place]. I discussed with Dr. Skinner. Will discuss with hospitalist. Discussed with Dr. Peña, internal medicine, patient admitted to the telemetry full admission. Patient and family state appreciation and agreement. - Vital Signs Vital signs: Temp Pulse Resp BP Pulse Ox 98.7 F 78 18 127/46 H 95 12/06/18 04:37 12/06/18 04:37 12/06/18 04:37 12/06/18 04:37 12/06/18 04:37 - Laboratory Result Diagrams: 12/05/18 23:24 12/05/18 23:24 Laboratory results interpreted by me: 12/05/18 12/05/18 23:24 23:24 WBC 15.8 H RBC 3.46 L Hgb 9.9 L Hct 29.9 L RDW 17.4 H Plt Count 557 H Lymph % (Auto) 12.4 L Absolute Neuts (auto) 12.5 H Seg Neutrophils % 79.0 H Sodium 130.5 L Potassium 3.4 L Chloride 97 L AST 48 H Total Protein 5.6 L Albumin 3.0 L Lipase 1256.6 H Discharge - Discharge Clinical Impression: Elevated lipase, Ileus Vomiting Qualifiers: Vomiting type: unspecified Vomiting Intractability: unspecified Nausea presence: with nausea Qualified Code(s): R11.2 - Nausea with vomiting, unspecified Abdominal pain Qualifiers: Abdominal location: generalized Qualified Code(s): R10.84 - Generalized abdominal pain Condition: Stable Disposition: ADMITTED INPATIENT Admitting Provider: Casey (Hospitalist) Unit Admitted: Telemetry
--- NOTE | 2018-12-05 23:19 | RADIOLOGY REPORT (SQ) ---
EXAM DESCRIPTION: XR CHEST 1 VIEW COMPLETED DATE/TME: 12/05/2018 22:25 CLINICAL HISTORY: 78 years Female, post op, persistent vomiting COMPARISON: None. NUMBER OF VIEWS/TECHNIQUE: 1/AP FINDINGS: Adequate lung volume, clear parenchyma, normal cardiac silhouette, and intact bony thorax.Atherosclerotic vascular disease. IMPRESSION: No acute cardiopulmonary findings.
[2018-12-05 23:41] LABS: ABSOLUTE BASOPHILS # (AUTO) 0.1 10^3/uL (0.0-0.2); ABSOLUTE EOSINOPHILS # (AUTO) 0.1 10^3/uL (0.0-0.6); ABSOLUTE MONOCYTES (AUTO) 1.2 10^3/uL (0.1-1.4); ABSOLUTE NEUT (AUTO) 12.5 10^3/uL (1.7-8.2); BASOPHILS % (AUTO) 0.7 % (0-2); EOSINOPHILS % (AUTO) 0.4 % (0-6); HEMATOCRIT 29.9 % (36.0-47.0); HEMOGLOBIN 9.9 g/dL (12.0-15.5); LYMPHOCYTES % (AUTO) 12.4 % (13-45); MEAN CORPUSCULAR HEMOGLOBIN 28.6 pg (27.0-33.4); MEAN CORPUSCULAR VOLUME 87 fl (80-97); MONOCYTES % (AUTO) 7.5 % (3-13); PLATELET COUNT 557 10^3/uL (150-450); RED BLOOD COUNT 3.46 10^6/uL (3.72-5.28); RED CELL DISTRIBUTION WIDTH 17.4 % (11.5-14.0); TOTAL CELLS COUNTED % (AUTO) 100 %; WHITE BLOOD COUNT 15.8 10^3/uL (4.0-10.5)
[2018-12-06 00:01] LABS: ALKALINE PHOSPHATASE 101 U/L (38-126); ANION GAP 10 (5-19); ASPARTATE AMINO TRANSFERASE 48 U/L (14-36); BILIRUBIN,DIRECT 0.4 mg/dL (0.0-0.4); BILIRUBIN,TOTAL 0.7 mg/dL (0.2-1.3); BLOOD UREA NITROGEN 14 mg/dL (7-20); CALCIUM 8.5 mg/dL (8.4-10.2); CARBON DIOXIDE 24 mmol/L (22-30); CHLORIDE 97 mmol/L (98-107); GLUCOSE 89 mg/dL (75-110); POTASSIUM 3.4 mmol/L (3.6-5.0); TOTAL PROTEIN 5.6 g/dL (6.3-8.2)
[2018-12-06] MEDS ORDERED: ONDANSETRON HCL INJ/PF 4 MG/2 ML SDV ONE (00:04)
[2018-12-06] MEDS ORDERED: NORMAL SALINE 1000 ML 1,000 ML IV ONE (01:26)
--- NOTE | 2018-12-06 01:54 | RADIOLOGY REPORT (SQ) ---
CLINICAL HISTORY: abd pain, post op(OOPHRECTOMY 1.5 weeks ago), vomiting. CREAT 0.55 COMPARISON: 11/23/2018. TECHNIQUE: CT ABDOMEN PELVIS WITH IV CONTRAST on 12/06/2018 12:09 AM CDT This exam was performed according to our departmental dose-optimization program, which includes automated exposure control, adjustment of the mA and/or kV according to patient size and/or use of iterative reconstruction technique. FINDINGS: Lower lungs are clear. Abdomen: There is mild perihepatic ascites. There is no biliary dilatation. There is a small hiatal hernia. There are multiple gallstones throughout the gallbladder. The pancreas and spleen are normal in appearance. Adrenal glands are normal. Right kidney is unremarkable. There is mild left hydronephrosis with a left ureteral stent in place. Abdominal aorta is normal in course and caliber without aneurysm. There is no free air. There is no retroperitoneal adenopathy.There is a small amount of residual extraperitoneal air in the right adnexal region. Pelvis: There are scattered dilated small bowel loops throughout the abdomen without clear transition point. Urinary bladder is unremarkable. There is small amount of fluid in the left abdomen. There is a small residual cyst in the left adnexa measuring 5.4 cm. Bilateral complex cystic adnexal masses have been resected. Appendix is not clearly seen. Skeleton: There are no acute osseous findings. No suspicious bony lesions. IMPRESSION: Postoperative changes of bilateral cystic ovarian mass resections. Probable diffuse small bowel ileus. Small amount of free air in the right adnexa
[2018-12-06] MEDS ORDERED: MAG HYDROX/AL HYDROX/SIMETH SUSP 30 ML UDCUP PO PRN (03:11)
[2018-12-06] MEDS ORDERED: ONDANSETRON HCL INJ/PF 4 MG/2 ML SDV IV PRN (03:11)
[2018-12-06] MEDS ORDERED: MAGNESIUM HYDROXIDE SUSP 30 ML UDCUP PO PRN (03:11)
[2018-12-06] MEDS ORDERED: IPRATROPIUM/ALBUTEROL 0.5-2.5 MG/3 ML AMPUL NEB PRN (03:11)
[2018-12-06] MEDS: POTASSI CL 20 MEQ/50 ML RIDER 20 MEQ/50 ML RTUPB IV SCH ×2 (03:29→06:34)
[2018-12-06 03:34] LABS: C DIFFICILE GDH NEGATIVE (NEGATIVE)
--- NOTE | 2018-12-06 05:04 | PDOC H&P ---
History of Present Illness Admission Date/PCP: 12/06/18 03:09 Patient complains of: Nausea and vomiting History of Present Illness: CHIKIS MOLINA is a 78 year old female with a past medical history of hypertension, deafness and 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 She presents with abdominal distention, nausea vomiting and diarrhea x2 days. In the emergency room she is found to have ileus with postoperative changes, acute pancreatitis without LFT changes, microcytic anemia and hypokalemia. She receives symptomatic management and referred to the hospitalist for admission. Past Medical History Cardiac Medical History: Reports: Hypertension Malignancy Medical History: Reports: Other - Bilateral ovarian tumors Past Surgical History Past Surgical History: Reports: Hysterectomy, Other - Bilateral ovarian tumor resection 10 days ago. Social History Information Source: Patient, [facility] Records Lives with: Family Smoking Status: Never Smoker Electronic Cigarette use?: No Frequency of Alcohol Use: None Hx Recreational Drug Use: No Drugs: None - Advance Directive Resuscitation Status: Full Code Family History Family History: Hypertension Parental Family History Reviewed: Yes Children Family History Reviewed: Yes Sibling(s) Family History Reviewed.: Yes Medication/Allergy Home Medications: No Home Medications 11/23/18 Allergies/Adverse Reactions: codeine Allergy (Verified 11/22/18 22:32) shellfish derived Allergy (Verified 11/22/18 22:32) Review of Systems Constitutional: PRESENT: as per HPI, anorexia, fatigue, weakness, weight loss Eyes: ABSENT: visual disturbances Ears: ABSENT: hearing changes Cardiovascular: ABSENT: chest pain, dyspnea on exertion, edema, orthropnea, palpitations Respiratory: ABSENT: cough, hemoptysis Gastrointestinal: PRESENT: as per HPI, bloating, diarrhea, nausea, vomiting Physical Exam Vital Signs: Temp Pulse Resp BP Pulse Ox 97.5 F 93 16 122/47 L 96 12/05/18 21:00 12/05/18 21:00 12/06/18 03:01 12/06/18 03:01 12/06/18 03:01 Intake & Output 12/04/18 12/05/18 12/06/18 11:59 11:59 11:59 Intake Total 500 Balance 500 Weight 81.3 kg General appearance: PRESENT: cooperative, mild distress, obese, well-developed, well-nourished Head exam: PRESENT: atraumatic, normocephalic Eye exam: PRESENT: conjunctiva pink, EOMI, PERRLA. ABSENT: scleral icterus Ear exam: PRESENT: normal external ear exam Mouth exam: PRESENT: moist, tongue midline Neck exam: ABSENT: carotid bruit, JVD, lymphadenopathy, thyromegaly Respiratory exam: PRESENT: clear to auscultation feroz. ABSENT: rales, rhonchi, wheezes Cardiovascular exam: PRESENT: RRR. ABSENT: diastolic murmur, rubs, systolic murmur Pulses: PRESENT: normal dorsalis pedis pul Vascular exam: PRESENT: normal capillary refill GI/Abdominal exam: PRESENT: hypoactive bowel sounds, normal bowel sounds, soft, other - Abdominal wall surgical incision with sutures intact no localized pain erythema or discharge. ABSENT: distended, guarding, mass, organolmegaly, rebound, tenderness Rectal exam: PRESENT: deferred Extremities exam: PRESENT: full ROM. ABSENT: calf tenderness, clubbing, pedal edema Neurological exam: PRESENT: alert, awake, oriented to person, oriented to place, oriented to time, oriented to situation, CN II-XII grossly intact. ABSENT: motor sensory deficit Psychiatric exam: PRESENT: appropriate affect, normal mood. ABSENT: homicidal ideation, suicidal ideation Skin exam: PRESENT: dry, intact, warm. ABSENT: cyanosis, rash Results Laboratory Results: 12/05/18 23:24 12/05/18 23:24 12/05/18 12/05/18 12/05/18 23:24 23:24 23:24 WBC 15.8 H RBC 3.46 L Hgb 9.9 L Hct 29.9 L MCV 87 MCH 28.6 MCHC 33.0 RDW 17.4 H Plt Count 557 H Seg Neutrophils % 79.0 H Sodium 130.5 L Potassium 3.4 L Chloride 97 L Carbon Dioxide 24 Anion Gap 10 BUN 14 Creatinine 0.55 Est GFR ( Amer) > 60 Glucose 89 Calcium 8.5 Magnesium Total Bilirubin 0.7 AST 48 H Alkaline Phosphatase 101 Total Protein 5.6 L Albumin 3.0 L Lipase 1256.6 H Stool for White Cells Blood Type A NEGATIVE Antibody Screen NEGATIVE 12/06/18 12/06/18 00:00 00:30 WBC RBC Hgb Hct MCV MCH MCHC RDW Plt Count Seg Neutrophils % Sodium Potassium Chloride Carbon Dioxide Anion Gap BUN Creatinine Est GFR ( Amer) Glucose Calcium Magnesium 1.8 Total Bilirubin AST Alkaline Phosphatase Total Protein Albumin Lipase Stool for White Cells NO WBCs SEEN Blood Type Antibody Screen Impressions: Chest X-Ray 12/05/18 22:25 IMPRESSION: No acute cardiopulmonary findings. Abdomen/Pelvis CT 12/06/18 00:09 IMPRESSION: Postoperative changes of bilateral cystic ovarian mass resections. Probable diffuse small bowel ileus. Small amount of free air in the right adnexa Assessment and Plan - Diagnosis (1) Ileus Is this a current diagnosis for this admission?: Yes Plan: Ileus versus small bowel obstruction, concern for recent surgery. Electrolyte repletion, bowel rest, NG tube decompression PRN. Consider reimaging with surgical consult. (2) Pancreatitis Is this a current diagnosis for this admission?: Yes Plan: Without LFT abnormality, bowel rest, hydration, symptomatic management, follow- up chemistry. Trial p.o. clear liquid diet with no longer requesting narcotic analgesia. Then advance diet as tolerated. (3) Microcytic anemia Is this a current diagnosis for this admission?: Yes Plan: Likely secondary to malignancy. Follow-up anemia study (4) Abdominal pain Qualifiers: Abdominal location: generalized Qualified Code(s): R10.84 - Generalized abdominal pain Is this a current diagnosis for this admission?: Yes Plan: Secondary to #1, symptomatic management (5) Mass, ovarian Is this a current diagnosis for this admission?: Yes Plan: Discharge summary and pathology report history pending from [facility], consider oncology consult. - Time Time Spent with patient: 25-34 minutes - Inpatient Certification Medical Necessity: Need Close Monitoring Due to Risk of Patient Decompensation
[2018-12-06] MEDS: HEPARIN SOD (PORCINE) 5,000 UNIT/ML 1 ML VIAL SUBCUT SCH ×3 (06:15→21:36)
[2018-12-06 08:34] LABS: ABSOLUTE BASOPHILS # (AUTO) 0.2 10^3/uL (0.0-0.2); ABSOLUTE EOSINOPHILS # (AUTO) 0.1 10^3/uL (0.0-0.6); ABSOLUTE LYMPHOCYTES (AUTO) 1.8 10^3/uL (0.5-4.7); ABSOLUTE NEUT (AUTO) 8.5 10^3/uL (1.7-8.2); BASOPHILS % (AUTO) 1.5 % (0-2); EOSINOPHILS % (AUTO) 1.3 % (0-6); HEMATOCRIT 27.7 % (36.0-47.0); HEMOGLOBIN 9.2 g/dL (12.0-15.5); LYMPHOCYTES % (AUTO) 15.6 % (13-45); MEAN CORPUSCULAR HEMOGLOBIN 28.9 pg (27.0-33.4); MEAN CORPUSCULAR HGB CONC 33.3 g/dL (32.0-36.0); MEAN CORPUSCULAR VOLUME 87 fl (80-97); MONOCYTES % (AUTO) 8.9 % (3-13); PLATELET COUNT 489 10^3/uL (150-450); RED BLOOD COUNT 3.19 10^6/uL (3.72-5.28); RED CELL DISTRIBUTION WIDTH 17.6 % (11.5-14.0); SEGMENTED NEUTROPHILS % (AUTO) 72.7 % (42-78); TOTAL CELLS COUNTED % (AUTO) 100 %; WHITE BLOOD COUNT 11.7 10^3/uL (4.0-10.5)
[2018-12-06 08:47] LABS: RETICULOCYTE COUNT (AUTO) 4.04 % (0.66-2.85)
[2018-12-06 08:52] LABS: IRON(TIBC) 39.7 ug/dL (37-170)
[2018-12-06 08:54] LABS: ALBUMIN 2.7 g/dL (3.5-5.0); ALKALINE PHOSPHATASE 84 U/L (38-126); ANION GAP 6 (5-19); ASPARTATE AMINO TRANSFERASE 41 U/L (14-36); BILIRUBIN,DIRECT 0.3 mg/dL (0.0-0.4); BILIRUBIN,TOTAL 0.7 mg/dL (0.2-1.3); BLOOD UREA NITROGEN 9 mg/dL (7-20); CALCIUM 8.1 mg/dL (8.4-10.2); CARBON DIOXIDE 24 mmol/L (22-30); CHLORIDE 103 mmol/L (98-107); GLUCOSE 71 mg/dL (75-110); POTASSIUM 3.9 mmol/L (3.6-5.0); TOTAL PROTEIN 5.3 g/dL (6.3-8.2)
[2018-12-06] MEDS: NORMAL SALINE 1000 ML 1,000 ML IV PRN ×2 (09:09→16:41)
[2018-12-06 10:05] LABS: FOLATE > 20.00 ng/mL (>2.76)
[2018-12-06 11:41] LABS: APPEARANCE,URINE CLOUDY; BILIRUBIN,URINE NEGATIVE (NEGATIVE); GLUCOSE, URINE NEGATIVE (NEGATIVE); KETONES,URINE 20 mg/dL (NEGATIVE); LEUKOCYTE ESTERASE,URINE LARGE (NEGATIVE); NITRITE,URINE POSITIVE (NEGATIVE); PROTEIN,URINE 100 mg/dL (NEGATIVE); URINE SPECIFIC GRAVITY 1.034; UROBILINOGEN,URINE NEGATIVE mg/dL (<2.0)
[2018-12-06 11:43] LABS: COLOR,URINE DARK YELLOW
[2018-12-06] MEDS: MELATONIN 5 MG TABLET PO SCH (21:37)
[2018-12-07 06:05] LABS: HEMATOCRIT 32.2 % (36.0-47.0); HEMOGLOBIN 10.5 g/dL (12.0-15.5); MEAN CORPUSCULAR HEMOGLOBIN 28.7 pg (27.0-33.4); MEAN CORPUSCULAR HGB CONC 32.6 g/dL (32.0-36.0); MEAN CORPUSCULAR VOLUME 88 fl (80-97); PLATELET COUNT 625 10^3/uL (150-450); RED BLOOD COUNT 3.65 10^6/uL (3.72-5.28); WHITE BLOOD COUNT 13.8 10^3/uL (4.0-10.5)
[2018-12-07] MEDS: HEPARIN SOD (PORCINE) 5,000 UNIT/ML 1 ML VIAL SUBCUT SCH ×3 (06:11→21:52)
[2018-12-07 06:14] LABS: ALBUMIN 3.1 g/dL (3.5-5.0); ALKALINE PHOSPHATASE 96 U/L (38-126); ANION GAP 8 (5-19); ASPARTATE AMINO TRANSFERASE 36 U/L (14-36); BILIRUBIN,DIRECT 0.3 mg/dL (0.0-0.4); BILIRUBIN,TOTAL 0.6 mg/dL (0.2-1.3); BLOOD UREA NITROGEN 3 mg/dL (7-20); CALCIUM 8.8 mg/dL (8.4-10.2); CARBON DIOXIDE 26 mmol/L (22-30); CHLORIDE 104 mmol/L (98-107); GLUCOSE 89 mg/dL (75-110); POTASSIUM 3.6 mmol/L (3.6-5.0); TOTAL PROTEIN 5.7 g/dL (6.3-8.2)
[2018-12-07 07:02] LABS: ABSOLUTE LYMPHOCYTES# (MANUAL) 1.9 10^3/uL (0.5-4.7); ABSOLUTE MONOCYTES # (MANUAL) 0.7 10^3/uL (0.1-1.4); ANISOCYTOSIS 2+; BAND NEUTROPHILS % (MANUAL) 3 % (3-5); BASOPHILS % (MANUAL) 0 % (0-2); EOSINOPHILS % (MANUAL) 6 % (0-6); HYPOCHROMASIA 1+; LYMPHOCYTES % (MANUAL) 14 % (13-45); MONOCYTES % (MANUAL) 5 % (3-13); SEGMENTED NEUTROPHILS % (MAN) 72 % (42-78); TOTAL CELLS COUNTED 100
[2018-12-07 07:03] LABS: PLATELET COMMENT INCREASED
[2018-12-07] MEDS ORDERED: INFLUENZA QUAD (6MOS+) 2019-20 VAC 0.5 ML SYR IM ONE (08:00)
[2018-12-07] MEDS: CEFTRIAXONE 1 GM/D5W RTU 1 GM/50 ML RTUPB IV SCH (11:48)
--- NOTE | 2018-12-07 14:57 | PDOC PROGRESS REPORT ---
Subjective Progress Note for:: 12/07/18 Subjective:: Family reports she had 6 loose stools overnight and although there was only one recorded bowel movement by staff. Will continue to monitor for recurrence of diarrhea. She says she feels better today and has tolerated clear liquid diet. No nausea or vomiting. She denies abdominal pain. Will advance diet today. Reason For Visit: ILEUS, HYPOKALEMIA, NAUSEA VOMITING ACUTE Physical Exam Vital Signs: Temp Pulse Resp BP Pulse Ox 97.9 F 79 18 135/59 H 99 12/07/18 07:47 12/07/18 07:47 12/07/18 07:47 12/07/18 07:47 12/07/18 07:47 Intake & Output 12/06/18 12/07/18 12/08/18 06:59 06:59 06:59 Intake Total 1550 2768 Output Total 965 Balance 1550 1803 Weight 178 lb 12.718 oz 179 lb 10.828 oz General appearance: PRESENT: no acute distress, well-developed, well-nourished Head exam: PRESENT: atraumatic, normocephalic Eye exam: PRESENT: conjunctiva pink, EOMI, PERRLA. ABSENT: scleral icterus Ear exam: PRESENT: normal external ear exam Mouth exam: PRESENT: moist, tongue midline Neck exam: ABSENT: carotid bruit, JVD, lymphadenopathy, thyromegaly Respiratory exam: PRESENT: clear to auscultation feroz. ABSENT: rales, rhonchi, wheezes Cardiovascular exam: PRESENT: RRR. ABSENT: diastolic murmur, rubs, systolic murmur Pulses: PRESENT: normal dorsalis pedis pul GI/Abdominal exam: PRESENT: normal bowel sounds, soft. ABSENT: distended, guarding, mass, organolmegaly, rebound, tenderness Rectal exam: PRESENT: deferred Extremities exam: PRESENT: full ROM. ABSENT: calf tenderness, clubbing, pedal edema Neurological exam: PRESENT: alert, awake, oriented to person, oriented to place, oriented to time, oriented to situation, CN II-XII grossly intact. ABSENT: motor sensory deficit Results Laboratory Results: 12/07/18 05:30 12/07/18 05:30 12/06/18 12/07/18 12/07/18 11:15 05:30 05:30 WBC 13.8 H RBC 3.65 L Hgb 10.5 L Hct 32.2 L MCV 88 MCH 28.7 MCHC 32.6 RDW 18.0 H Plt Count 625 H Seg Neutrophils % Not Reportable Sodium 137.6 Potassium 3.6 Chloride 104 Carbon Dioxide 26 Anion Gap 8 BUN 3 L Creatinine 0.46 L Est GFR ( Amer) > 60 Glucose 89 Calcium 8.8 Magnesium 1.7 Total Bilirubin 0.6 AST 36 Alkaline Phosphatase 96 Total Protein 5.7 L Albumin 3.1 L Urine Color DARK YELLOW Urine Appearance CLOUDY Urine pH 6.0 Ur Specific [place] 1.034 Urine Protein 100 H Urine Glucose (UA) NEGATIVE Urine Ketones 20 H Urine Blood LARGE H Urine Nitrite POSITIVE H Ur Leukocyte Esterase LARGE H Urine WBC (Auto) 126 Urine RBC (Auto) 74 Impressions: Chest X-Ray 12/05/18 22:25 IMPRESSION: No acute cardiopulmonary findings. Abdomen/Pelvis CT 12/06/18 00:09 IMPRESSION: Postoperative changes of bilateral cystic ovarian mass resections. Probable diffuse small bowel ileus. Small amount of free air in the right adnexa Assessment and Plan - Diagnosis (1) Ileus Is this a current diagnosis for this admission?: Yes Plan: Possibly related to recent and surgery with hypokalemia on presentation contributory. She is tolerating liquid diet well. No recurrence of nausea vomiting. Will advance diet today. (2) UTI (urinary tract infection) Is this a current diagnosis for this admission?: Yes Plan: Started on Rocephin. Urine culture pending. (3) Hypokalemia Is this a current diagnosis for this admission?: Yes Plan: Resolved. - Time Time Spent with patient: 15-24 minutes
[2018-12-07] MEDS: MELATONIN 5 MG TABLET PO SCH (21:52)
[2018-12-08 01:38] LABS: ALBUMIN 2.7 g/dL (3.5-5.0); ALKALINE PHOSPHATASE 92 U/L (38-126); ANION GAP 8 (5-19); ASPARTATE AMINO TRANSFERASE 26 U/L (14-36); BILIRUBIN,DIRECT 0.3 mg/dL (0.0-0.4); BILIRUBIN,TOTAL 0.6 mg/dL (0.2-1.3); BLOOD UREA NITROGEN 2 mg/dL (7-20); CALCIUM 8.1 mg/dL (8.4-10.2); CARBON DIOXIDE 24 mmol/L (22-30); CHLORIDE 105 mmol/L (98-107); GLUCOSE 110 mg/dL (75-110); TOTAL PROTEIN 5.2 g/dL (6.3-8.2)
[2018-12-08 01:39] LABS: POTASSIUM 2.7 mmol/L (3.6-5.0)
[2018-12-08] MEDS ORDERED: METOPROLOL TARTRATE PF/INJ 5 MG/5 ML SDV IV ONE (02:00)
[2018-12-08] MEDS: POTASSIUM CHLORIDE 20 MEQ/50 ML RTU IV SCH ×2 (02:05→04:10)
[2018-12-08] MEDS: POTASSIUM CHLORIDE 10 MEQ CAPSULE.ER PO ONE ×2 (02:18→02:21)
[2018-12-08] MEDS: MAGNESIUM SULFATE 1 GM/D5W 100 ML IV SCH ×2 (02:51→04:08)
[2018-12-08] MEDS: HEPARIN SOD (PORCINE) 5,000 UNIT/ML 1 ML VIAL SUBCUT SCH ×3 (06:37→21:16)
[2018-12-08] MEDS: POTASSI CL 20 MEQ/50 ML RIDER 20 MEQ/50 ML RTUPB IV SCH ×2 (09:52→12:15)
[2018-12-08 10:33] LABS: FREE T3 3.35 pg/mL (2.77-5.27); FREE T4 (FREE THYROXINE) 1.44 ng/dL (0.78-2.19)
[2018-12-08 11:39] LABS: ANION GAP 7 (5-19); CARBON DIOXIDE 25 mmol/L (22-30); CHLORIDE 105 mmol/L (98-107); GLUCOSE 107 mg/dL (75-110); POTASSIUM 3.4 mmol/L (3.6-5.0)
[2018-12-08 11:44] LABS: BLOOD UREA NITROGEN < 2 mg/dL (7-20)
[2018-12-08] MEDS: CEFTRIAXONE 1 GM/D5W RTU 1 GM/50 ML RTUPB IV SCH (12:26)
--- NOTE | 2018-12-08 15:16 | PDOC PROGRESS REPORT ---
Subjective Progress Note for:: 12/08/18 Subjective:: Family reports she had 6 loose stools overnight and although there was only one recorded bowel movement by staff. Will continue to monitor for recurrence of diarrhea. She says she feels better today and has tolerated clear liquid diet. No nausea or vomiting. She denies abdominal pain. Will advance diet today. 12/07: Patient went into A. fib with a heart rate in the 140s last night. She does not have a prior history of A. fib. BMP came back remarkable for severe hypokalemia with a potassium of 2.7 and hypomagnesemia and magnesium 1.5. She was given IV Lopressor and electrode replacement and she converted right back to normal sinus rhythm. Back on this morning, she denies acute complaints. Denies chest pain shortness of breath. She remains in sinus rhythm. No recurrence of diarrhea so far. Reason For Visit: ILEUS, HYPOKALEMIA, NAUSEA VOMITING ACUTE Physical Exam Vital Signs: Temp Pulse Resp BP Pulse Ox 98.7 F 80 18 116/37 L 98 12/08/18 11:34 12/08/18 11:34 12/08/18 11:34 12/08/18 11:34 12/08/18 11:34 Intake & Output 12/07/18 12/08/18 12/09/18 06:59 06:59 06:59 Intake Total 2768 727 100 Output Total 965 700 Balance 1803 27 100 Weight 179 lb 10.828 oz General appearance: PRESENT: no acute distress, well-developed, well-nourished Head exam: PRESENT: atraumatic, normocephalic Eye exam: PRESENT: conjunctiva pink, EOMI, PERRLA. ABSENT: scleral icterus Ear exam: PRESENT: normal external ear exam Mouth exam: PRESENT: moist, tongue midline Neck exam: ABSENT: carotid bruit, JVD, lymphadenopathy, thyromegaly Respiratory exam: PRESENT: clear to auscultation feroz. ABSENT: rales, rhonchi, wheezes Cardiovascular exam: PRESENT: RRR, systolic murmur - chronic-reports having a murmur since childhood. ABSENT: diastolic murmur, rubs Pulses: PRESENT: normal dorsalis pedis pul GI/Abdominal exam: PRESENT: normal bowel sounds, soft. ABSENT: distended, guard ing, mass, organolmegaly, rebound, tenderness Rectal exam: PRESENT: deferred Extremities exam: PRESENT: full ROM. ABSENT: calf tenderness, clubbing, pedal edema Neurological exam: PRESENT: alert, awake, oriented to person, oriented to place, oriented to time, oriented to situation, CN II-XII grossly intact. ABSENT: motor sensory deficit Results Laboratory Results: 12/07/18 05:30 12/08/18 11:01 12/08/18 12/08/18 12/08/18 01:03 01:03 01:03 Sodium 137.1 Potassium 2.7 L* Chloride 105 Carbon Dioxide 24 Anion Gap 8 BUN 2 L Creatinine 0.48 L Est GFR ( Amer) > 60 Glucose 110 Calcium 8.1 L Magnesium 1.5 L Total Bilirubin 0.6 AST 26 Alkaline Phosphatase 92 Total Protein 5.2 L Albumin 2.7 L TSH 9.70 H Free T4 1.44 Free T3 pg/mL 3.35 12/08/18 12/08/18 11:01 11:01 Sodium 137.1 Potassium 3.4 L Chloride 105 Carbon Dioxide 25 Anion Gap 7 BUN < 2 L Creatinine 0.47 L Est GFR ( Amer) > 60 Glucose 107 Calcium 8.0 L Magnesium 2.2 Total Bilirubin AST Alkaline Phosphatase Total Protein Albumin TSH Free T4 Free T3 pg/mL Impressions: Chest X-Ray 12/05/18 22:25 IMPRESSION: No acute cardiopulmonary findings. Abdomen/Pelvis CT 12/06/18 00:09 IMPRESSION: Postoperative changes of bilateral cystic ovarian mass resections. Probable diffuse small bowel ileus. Small amount of free air in the right adnexa Assessment and Plan - Diagnosis (1) Ileus Is this a current diagnosis for this admission?: Yes Plan: Possibly related to recent and surgery with hypokalemia on presentation contributory. She is tolerating liquid diet well. No recurrence of nausea vomiting. Will advance diet today. 12/08: Tolerating regular diet well. No BM or recurrence of diarrhea yet since last night. Repleting Potassium. (2) UTI (urinary tract infection) Is this a current diagnosis for this admission?: Yes Plan: Started on Rocephin. Urine culture garbing gram negative rods. (3) Hypokalemia Is this a current diagnosis for this admission?: Yes Plan: 12/07: Resolved. 12/08: Potassium went down to 2.7 again likely related to her diarrhea and poor oral intake. She got 40 meqs IV last night. Add another 40 meqs IV. Will add scheduled PO Potassium. She is starting to increase her oral intake now. (4) Atrial fibrillation Is this a current diagnosis for this admission?: Yes Plan: Transient. Possibly related to severe hypokalemia and hypomagnesemia. Remain in normal sinus rhythm. - Time Time Spent with patient: 25-34 minutes
--- NOTE | 2018-12-08 15:43 | EKG REPORT ---
SEVERITY:- BORDERLINE ECG - SINUS RHYTHM MILD NONSPECIFIC ST-T CHANGES- INFERIOR LEADS : Confirmed by: Aris Agustin MD 08-Dec-2018 15:42:55
[2018-12-08] MEDS: MELATONIN 5 MG TABLET PO SCH (21:15)
[2018-12-09 04:25] LABS: ANION GAP 5 (5-19); CARBON DIOXIDE 28 mmol/L (22-30); CHLORIDE 105 mmol/L (98-107); GLUCOSE 101 mg/dL (75-110); POTASSIUM 3.5 mmol/L (3.6-5.0)
[2018-12-09 04:28] LABS: BLOOD UREA NITROGEN < 2 mg/dL (7-20)
[2018-12-09] MEDS: HEPARIN SOD (PORCINE) 5,000 UNIT/ML 1 ML VIAL SUBCUT SCH ×2 (06:15→15:43)
[2018-12-09 09:16] LABS: HEMATOCRIT 28.1 % (36.0-47.0); HEMOGLOBIN 9.3 g/dL (12.0-15.5); MEAN CORPUSCULAR HEMOGLOBIN 29.3 pg (27.0-33.4); MEAN CORPUSCULAR HGB CONC 33.2 g/dL (32.0-36.0); MEAN CORPUSCULAR VOLUME 88 fl (80-97); PLATELET COUNT 504 10^3/uL (150-450); RED BLOOD COUNT 3.19 10^6/uL (3.72-5.28); RED CELL DISTRIBUTION WIDTH 18.6 % (11.5-14.0); WHITE BLOOD COUNT 7.6 10^3/uL (4.0-10.5)
[2018-12-09 09:38] LABS: ABSOLUTE LYMPHOCYTES# (MANUAL) 1.8 10^3/uL (0.5-4.7); ABSOLUTE MONOCYTES # (MANUAL) 0.6 10^3/uL (0.1-1.4); BAND NEUTROPHILS % (MANUAL) 2 % (3-5); BASOPHILS % (MANUAL) 1 % (0-2); EOSINOPHILS % (MANUAL) 2 % (0-6); LYMPHOCYTES % (MANUAL) 23 % (13-45); MONOCYTES % (MANUAL) 8 % (3-13); SEGMENTED NEUTROPHILS % (MAN) 63 % (42-78); TOTAL CELLS COUNTED 100
[2018-12-09 09:40] LABS: ANISOCYTOSIS 1+; PLATELET COMMENT INCREASED; POLYCHROMASIA SLIGHT
[2018-12-09] MEDS ORDERED: POTASSIUM CHLORIDE 10 MEQ CAPSULE.ER PO SCH (10:00)
[2018-12-09] MEDS: CEFTRIAXONE 1 GM/D5W RTU 1 GM/50 ML RTUPB IV SCH (11:00)
[2018-12-09 16:14] VITALS: BP 144/57
--- NOTE | 2018-12-09 16:21 | PDOC DISCHARGE SUMMARY ---
Impression - Admit/DC Date/PCP Admission Date/Primary Care Provider: 12/06/18 03:09 Discharge Date: 12/09/18 - Discharge Diagnosis (1) Ileus Is this a current diagnosis for this admission?: Yes (2) UTI (urinary tract infection) Is this a current diagnosis for this admission?: Yes (3) Hypokalemia Is this a current diagnosis for this admission?: Yes (4) Atrial fibrillation Is this a current diagnosis for this admission?: Yes - Additional Information Resuscitation Status: Full Code Referrals: WILY KHANNA [Other] - 12/11/18 9:00 am (FOLLOW UP, AND ESTABLISH PRIMARY CARE) Prescriptions: Ciprofloxacin HCl [Cipro 500 mg Tablet] 500 mg PO BID 7 Days #14 tablet Potassium Chloride [Klor-Con 10 Meq Capsule ER] 20 meq PO DAILY 5 Days #5 capsule.er Home Medications: Acetaminophen [Tylenol 325 mg Tablet] 650 mg PO Q8HP PRN 12/06/18 Ibuprofen [Motrin 600 mg Tablet] 600 mg PO Q6HP PRN 12/06/18 Multivitamin [Multiple Vitamins] 1 tab PO DAILY 12/06/18 Sennosides/Docusate Sodium [Senna Plus 8.6-50 mg Tablet] 1 tab PO BID 12/06/18 Ciprofloxacin HCl [Cipro 500 mg Tablet] 500 mg PO BID 7 Days #14 tablet 12/09/18 Potassium Chloride [Klor-Con 10 Meq Capsule ER] 20 meq PO DAILY 5 Days #5 capsule.er 12/09/18 History of Present Illiness History of Present Illness: Admitting hospitalist's H&P: CHIKIS MOLINA is a 78 year old female with a past medical history of hypertension, deafness and 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 She presents with abdominal distention, nausea vomiting and diarrhea x2 days. In the emergency room she is found to have ileus with postoperative changes, acute pancreatitis without LFT changes, microcytic anemia and hypokalemia. She receives symptomatic management and referred to the hospitalist for admission. Hospital Course Hospital Course: Patient presented with nausea, vomiting, abdominal discomfort and diarrhea. She was noted to have ileus on CT which was also initially noted to be hypokalemic. She started on IV fluids. Her potassium was also repleted. Was also noted to have a urinary tract infection. She was started on antibiotics. Her diet was gradually advanced and she tolerated oral intake well. Her bowel movements return to her baseline. She will be discharged on Keflex. She will follow-up with her PCP tomorrow to follow-up on the final urine culture and sensitivity results. Physical Exam Vital Signs: Temp Pulse Resp BP Pulse Ox 98.3 F 70 19 130/71 H 96 12/09/18 11:46 12/09/18 11:46 12/09/18 11:46 12/09/18 11:46 12/09/18 11:46 Intake & Output 12/08/18 12/09/18 12/10/18 06:59 06:59 06:59 Intake Total 727 890 125 Output Total 700 Balance 27 890 125 Weight 179 lb 10.828 oz General appearance: PRESENT: no acute distress, well-developed, well-nourished Head exam: PRESENT: atraumatic, normocephalic Eye exam: PRESENT: conjunctiva pink, EOMI, PERRLA. ABSENT: scleral icterus Ear exam: PRESENT: normal external ear exam Mouth exam: PRESENT: moist, tongue midline Neck exam: ABSENT: carotid bruit, JVD, lymphadenopathy, thyromegaly Respiratory exam: PRESENT: clear to auscultation feroz. ABSENT: rales, rhonchi, wheezes Cardiovascular exam: PRESENT: RRR. ABSENT: diastolic murmur, rubs, systolic murmur Pulses: PRESENT: normal dorsalis pedis pul GI/Abdominal exam: PRESENT: normal bowel sounds, soft. ABSENT: distended, guarding, mass, organolmegaly, rebound, tenderness Rectal exam: PRESENT: deferred Extremities exam: PRESENT: full ROM. ABSENT: calf tenderness, clubbing, pedal e mikayla Neurological exam: PRESENT: alert, awake, oriented to person, oriented to place, oriented to time, oriented to situation, CN II-XII grossly intact. ABSENT: motor sensory deficit Results Laboratory Results: WBC 7.6 10^3/uL (4.0-10.5) 12/09/18 03:50 RBC 3.19 10^6/uL (3.72-5.28) L 12/09/18 03:50 Hgb 9.3 g/dL (12.0-15.5) L 12/09/18 03:50 Hct 28.1 % (36.0-47.0) L 12/09/18 03:50 MCV 88 fl (80-97) 12/09/18 03:50 MCH 29.3 pg (27.0-33.4) 12/09/18 03:50 MCHC 33.2 g/dL (32.0-36.0) 12/09/18 03:50 RDW 18.6 % (11.5-14.0) H 12/09/18 03:50 Plt Count 504 10^3/uL (150-450) H 12/09/18 03:50 Lymph % (Auto) Not Reportable 12/09/18 03:50 Hart % (Auto) Not Reportable 12/09/18 03:50 Eos % (Auto) Not Reportable 12/09/18 03:50 Baso % (Auto) Not Reportable 12/09/18 03:50 Reticulocyte # 0.130 10^6/uL (0.028-0.122) H 12/06/18 07:56 Absolute Neuts (auto) Not Reportable 12/09/18 03:50 Absolute Lymphs (auto) Not Reportable 12/09/18 03:50 Absolute Monos (auto) Not Reportable 12/09/18 03:50 Absolute Eos (auto) Not Reportable 12/09/18 03:50 Absolute Basos (auto) Not Reportable 12/09/18 03:50 Total Counted 100 12/09/18 03:50 Seg Neutrophils % Not Reportable 12/09/18 03:50 Seg Neuts % (Manual) 63 % (42-78) 12/09/18 03:50 Band Neutrophils % 2 % (3-5) L 12/09/18 03:50 Lymphocytes % (Manual) 23 % (13-45) 12/09/18 03:50 Atypical Lymphs % 1 % (0) 12/09/18 03:50 Monocytes % (Manual) 8 % (3-13) 12/09/18 03:50 Eosinophils % (Manual) 2 % (0-6) 12/09/18 03:50 Basophils % (Manual) 1 % (0-2) 12/09/18 03:50 Abs Neuts (Manual) 4.9 10^3/uL (1.7-8.2) 12/09/18 03:50 Abs Lymphs (Manual) 1.8 10^3/uL (0.5-4.7) 12/09/18 03:50 Abs Monocytes (Manual) 0.6 10^3/uL (0.1-1.4) 12/09/18 03:50 Absolute Eos (Manual) 0.2 10^3/uL (0.0-0.6) 12/09/18 03:50 Abs Basophils (Manual) 0.1 10^3/uL (0.0-0.2) 12/09/18 03:50 Platelet Comment INCREASED 12/09/18 03:50 Polychromasia SLIGHT 12/09/18 03:50 Hypochromasia 1+ 12/07/18 05:30 Anisocytosis 1+ 12/09/18 03:50 Retic Count (auto) 4.04 % (0.66-2.85) H 12/06/18 07:56 Sodium 137.6 mmol/L (137-145) 12/09/18 03:50 Potassium 3.5 mmol/L (3.6-5.0) L 12/09/18 03:50 Chloride 105 mmol/L (98-107) 12/09/18 03:50 Carbon Dioxide 28 mmol/L (22-30) 12/09/18 03:50 Anion Gap 5 (5-19) 12/09/18 03:50 BUN < 2 mg/dL (7-20) L 12/09/18 03:50 Creatinine 0.43 mg/dL (0.52-1.25) L 12/09/18 03:50 Est GFR ( Amer) > 60 (>60) 12/09/18 03:50 Est GFR (MDRD) Non-Af > 60 (>60) 12/09/18 03:50 Glucose 101 mg/dL (75-110) 12/09/18 03:50 Calcium 8.0 mg/dL (8.4-10.2) L 12/09/18 03:50 Magnesium 2.2 mg/dL (1.6-2.3) 12/08/18 11:01 Iron 39.7 ug/dL (37-170) 12/06/18 07:56 TIBC 282 ug/dL (250-450) 12/06/18 07:56 % Saturation 14 % 12/06/18 07:56 Ferritin 47.40 ng/mL (11.1-264.0) 12/06/18 07:56 Total Bilirubin 0.6 mg/dL (0.2-1.3) 12/08/18 01:03 Direct Bilirubin 0.3 mg/dL (0.0-0.4) 12/08/18 01:03 Neonat Total Bilirubin Not Reportable 12/08/18 01:03 Neonat Direct Bilirubin Not Reportable 12/08/18 01:03 Neonat Indirect Bili Not Reportable 12/08/18 01:03 AST 26 U/L (14-36) 12/08/18 01:03 ALT 43 U/L (<35) 12/08/18 01:03 Alkaline Phosphatase 92 U/L (38-126) 12/08/18 01:03 Total Protein 5.2 g/dL (6.3-8.2) L 12/08/18 01:03 Albumin 2.7 g/dL (3.5-5.0) L 12/08/18 01:03 Lipase 1256.6 U/L (23-300) H 12/05/18 23:24 Vitamin B12 652.0 pg/mL (239-931) 12/06/18 07:56 Folate > 20.00 ng/mL (>2.76) 12/06/18 07:56 TSH 9.70 uIU/mL (0.47-4.68) H 12/08/18 01:03 Free T4 1.44 ng/dL (0.78-2.19) 12/08/18 01:03 Free T3 pg/mL 3.35 pg/mL (2.77-5.27) 12/08/18 01:03 Urine Color DARK YELLOW 12/06/18 11:15 Urine Appearance CLOUDY 12/06/18 11:15 Urine pH 6.0 (5.0-9.0) 12/06/18 11:15 Ur Specific [place] 1.034 12/06/18 11:15 Urine Protein 100 mg/dL (NEGATIVE) H 12/06/18 11:15 Urine Glucose (UA) NEGATIVE mg/dL (NEGATIVE) 12/06/18 11:15 Urine Ketones 20 mg/dL (NEGATIVE) H 12/06/18 11:15 Urine Blood LARGE (NEGATIVE) H 12/06/18 11:15 Urine Nitrite POSITIVE (NEGATIVE) H 12/06/18 11:15 Urine Bilirubin NEGATIVE (NEGATIVE) 12/06/18 11:15 Urine Urobilinogen NEGATIVE mg/dL (<2.0) 12/06/18 11:15 Ur Leukocyte Esterase LARGE (NEGATIVE) H 12/06/18 11:15 Urine WBC (Auto) 126 /HPF 12/06/18 11:15 Urine RBC (Auto) 74 /HPF 12/06/18 11:15 Urine Bacteria (Auto) 1+ /HPF 12/06/18 11:15 Squamous Epi Cells Auto 12 /HPF 12/06/18 11:15 U Non-Squamous Epis Auto 2 /HPF 12/06/18 11:15 Urine Mucus (Auto) RARE /LPF 12/06/18 11:15 Urine Ascorbic Acid NEGATIVE (NEGATIVE) 12/06/18 11:15 Stool for White Cells NO WBCs SEEN 12/06/18 00:30 Stl C. Difficile GDH Ag NEGATIVE (NEGATIVE) 12/06/18 00:09 Stl C.difficile Tox A&B NEGATIVE (NEGATIVE) 12/06/18 00:09 Blood Type A NEGATIVE 12/05/18 23:24 Antibody Screen NEGATIVE 12/05/18 23:24 Impressions: Chest X-Ray 12/05/18 22:25 IMPRESSION: No acute cardiopulmonary findings. Abdomen/Pelvis CT 12/06/18 00:09 IMPRESSION: Postoperative changes of bilateral cystic ovarian mass resections. Probable diffuse small bowel ileus. Small amount of free air in the right adnexa Stroke Is this a Stroke Patient?: No Acute Heart Failure - Is this a Heart Failure Patient?: No
== END 2018-12-09 16:15 | disposition home or self-care (01) | DRG 388 ==
LOC: ER 20:27 → EH 12-06 03:09 → 4W 12-06 04:20
PROVIDERS: ADMIT Internal Medicine; ATTEND Internal Medicine
DX: K56.7 Ileus, unspecified (principal); K85.90 Acute pancreatitis without necrosis or infection, unspecified; N39.0 Urinary tract infection, site not specified; E87.6 Hypokalemia; I48.91 Unspecified atrial fibrillation; I10 Essential (primary) hypertension; D50.9 Iron deficiency anemia, unspecified; H91.90 Unspecified hearing loss, unspecified ear; E66.9 Obesity, unspecified; Z79.899 Other long term (current) drug therapy; Z82.49 Family history of ischemic heart disease and other diseases of the circulatory system; Z88.6 Allergy status to analgesic agent; Z91.013 Allergy to seafood; Z23 Encounter for immunization
CPT/HCPCS: 36415; 71045; 74177; 80048; 80053; 81001; 82607; 82728; 82746; 83540; 83550; 83690; 83735; 84132; 84439; 84443; 84481; 85025; 85045; 86850; 86900; 86901; 87045; 87086; 87088; 87186; 87205; 87324; 87449; 89055; 90686; 93005; 93010; 96361; 96374; 99285; J0696; J1644; J2405; J3475; J3480; J3490; J7030; J7040

== ENCOUNTER → 2019-04-08 | Outpatient (CLI) | payer MEDICARE, BC ==
[~2019-04-08] MED LIST: FUROSEMIDE INJ/PF 40 MG/4 ML SDV ONE
--- NOTE | 2019-04-08 14:08 | RADIOLOGY REPORT (SQ) ---
EXAM DESCRIPTION: NM RENAL WITH LASIX COMPLETED DATE/TIME: 04/08/2019 1:43 pm REASON FOR STUDY: N99.81 OTHER INTRAOPERATIVE COMPLICATIONS OF GENITOURINARY SYSTEM N99.81 OTHER IN TRAOPERATIVE COMPLICATIONS OF GENITOURINARY S COMPARISON: None. RADIONUCLIDE AND DOSE: 5.22 millicuries Tc-99m MAG 3 The route of agent administration: Intravenous ADDITIONAL DRUGS AND DOSES: Lasix 20 mg. TECHNIQUE: Following administration of the radionuclide, flow images of the kidneys were acquired fo llowed by sequential imaging for 30 minutes. Intravenous Lasix was given at 7 minutes post radionucli de injection. Time activity curves were generated. LIMITATIONS: None. FINDINGS: ACTIVITY LEFT KIDNEY: 44 %. ACTIVITY RIGHT KIDNEY: 56 %. There is prompt uptake of activity in the kidneys bilaterally simultaneous with passage of the aortic bolus. LEFT KIDNEY: There is progressive accumulation of activity within the renal cortex with no significa nt movement into the collecting system. Time activity curves demonstrate progressive increasing acti vity with no excretion. RIGHT KIDNEY: There is normal excretion with progression of activity from the renal cortex into the collecting system and subsequently into the ureters. Time activity curves demonstrate normal excreto ry pattern with no abnormal retention. No obstructive changes. IMPRESSION: OBSTRUCTIVE PATTERN IN THE LEFT KIDNEY. NORMAL EXCRETORY PATTERN IN THE RIGHT KIDNEY. TECHNICAL DOCUMENTATION: JOB ID: [id number] 2011 [employer]- All Rights Reserved Reading location - IP/workstation name: [email or web address]
== END ==
LOC: RAD 10:52
PROVIDERS: ATTEND Urology
DX: N99.81 Other intraoperative complications of genitourinary system (principal)
CPT/HCPCS: 78708; A9562; J1940